=== PATIENT | female | born 1940 | race Caucasian/White ===

== ENCOUNTER 2021-07-18 19:06 | Emergency (ER) | payer MEDICARE ==
[2021-07-18] MEDS ORDERED: CLONIDINE 0.1 MG TABLET PO ONE (19:45)
--- NOTE | 2021-07-18 19:48 | ERPHSYRPT ---
- History of Present Illness Source: patient, other (Daughter) Exam Limitations: no limitations Patient Subjective Stated Complaint: Pt states "My blood pressure has been high lately so Dr. Tsang increased my blood pressure medication a week ago. Today is it has been running 160/90s and I had a big headache and took tylenol so now its better." Triage Nursing Assessment: Pt alert and oriented x3, skin wnl, pt ambulatory to cot by self with no assist, pt c/o htn and R sided frontal headache that started this morning, pt also had an epiosode of L arm numbness that started at 1030 this am and resolved around 1100am, pt has no other complaints at this time other than htn and headache, bp in ED is 181/85, pt takes amlodipine Physician History: 81 yo WF w LUE paresthesia at approx 10:00AM this morning w resolution after 15- 30 minutes. Pt has no focal weakness at this time and states that she is here because her BP is elevated. Granddaughter states that pt has had a WHITAKER which pt denies along w nausea/vomiting. Timing/Duration: today (10:00AM) Severity: mild Deficits: no difficulties Baseline/Normal Cognition: alert oriented x 3 Current Cognition: alert oriented x 3 Baseline Gait: walks w/o assistance Associated Symptoms: numbness/tingling in legs/feet, paresthesia, No confusion, No fatigue, No fever, No chills, No loss of consciousness, No nausea, No vomiting, No weakness, No insomnia, No muscle spasms, No ringing in ears, No seizures, No slurred speech, No trouble walking, No vision changes, No chest pain, No headache Allergies/Adverse Reactions: No Known Drug Allergies Allergy (Verified 07/18/21 19:31) Home Medications: Amlodipine/Atorvastatin [Amlodipine-Atorvast 5-20 mg] 2.5 mg PO DAILY 07/02/11 [History] Aspirin 1 tab PO HS 07/02/11 [History] Famotidine [Pepcid] 1 tab PO DAILY 07/04/11 [History] Calcium Carb/Vitamin D3/Vit K1 [Calcium + Vit D & K Chew Tab] 1 each PO DAILY 09/25/13 [History] Atorvastatin Calcium [Lipitor 20MG Tablet] 20 mg PO DAILY 07/18/21 [History] Losartan Potassium 100 mg PO DAILY 07/18/21 [History] Hx Tetanus, Diphtheria Vaccination/Date Given: No Hx Influenza Vaccination/Date Given: Yes Hx Pneumococcal Vaccination/Date Given: Yes Immunizations Up to Date: Yes Travel Risk - International Travel Have you traveled outside of the country in past 3 weeks: No - Coronavirus Screening Are you exhibiting any of the following symptoms?: No Close contact with a COVID-19 positive Pt in past 14-21 Days: No - Vaccine Status Have you recieved a Covid-19 vaccination: Yes 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[employer] - Vaccination Dates Date of 2cond Vaccination (if applicable): Feb 2020 - Review of Systems Constitutional: No Symptoms Eyes: No Symptoms Ears, Nose, & Throat: No Symptoms Respiratory: No Symptoms Cardiac: No Symptoms Abdominal/Gastrointestinal: No Symptoms Genitourinary Symptoms: No Symptoms Musculoskeletal: No Symptoms Skin: No Symptoms Neurological: Headache (Per Granddaughter), Parasthesia (LUE resolved) Psychological: No Symptoms Endocrine: No Symptoms Hematologic/Lymphatic: No Symptoms Immunological/Allergic: No Symptoms - Past Medical History Pertinent Past Medical History: Yes Neurological History: No Pertinent History ENT History: Cataracts Cardiac History: High Cholesterol, Hypertension Respiratory History: No Pertinent History Endocrine Medical History: No Pertinent History Musculoskeletal History: Arthritis, Osteoporosis GI Medical History: GERD, Hernia History: No Pertinent History Psycho-Social History: No Pertinent History Female Reproductive Disorders: No Pertinent History - Past Surgical History Past Surgical History: Yes Neuro Surgical History: No Pertinent History Cardiac: No Pertinent History Respiratory: No Pertinent History Gastrointestinal: Appendectomy Genitourinary: No Pertinent History Musculoskeletal: Orthopedic Surgery Female Surgical History: No Pertinent History Other Surgical History: R knee arthroscopy - Social History Smoking Status: Never smoker Exposure to second hand smoke: No Drug Use: none Patient Lives Alone: No - Nursing Vital Signs Nursing Vital Signs: Initial Vital Signs Temperature 98.3 F 07/18/21 19:22 Pulse Rate 71 07/18/21 19:22 Respiratory Rate 17 07/18/21 19:22 Blood Pressure 181/85 07/18/21 19:22 O2 Sat by Pulse Oximetry 96 07/18/21 19:22 Pain Scale Pain Intensity 4 Hypertensive - Lucius Coma Scale Best Eye Response (Sparks): (4) open spontaneously Best Verbal Response (Sparks): (5) oriented Best Motor Response (Lucius): (6) obeys commands Lucius Total: 15 - Physical Exam General Appearance: no apparent distress Eye Exam: bilateral eye: normal inspection, PERRL, EOMI Ears, Nose, Throat Exam: normal ENT inspection, TMs normal, pharynx normal, moist mucous membranes Neck Exam: normal inspection, non-tender, supple, full range of motion, No meningismus, No mass, No Brudzinski, No Kernig's Respiratory: normal breath sounds, lungs clear, airway intact Cardiovascular: regular rate/rhythm, normal heart sounds, normal peripheral pulses, capillary refill <2 sec, No murmur Gastrointestinal: soft, normal bowel sounds Back Exam: normal inspection, normal range of motion Extremity Exam: normal inspection, normal range of motion, pelvis stable Peripheral Pulses: carotid (R): 2+, carotid (L): 2+ Mental Status: alert, oriented x 3, cooperative, No agitated, 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 Exam: normal hearing, normal speech, PERRL Motor/Sensory: no motor deficit, no sensory deficit, no pronator drift, negative Babinski's sign DTR: bicep (R): 2+, bicep (L): 2+ Skin Exam: normal color, warm, dry, No rash SpO2 Interpretation: normal SpO2: 96 O2 Delivery: Room Air - Course Nursing assessment & vital signs reviewed: Yes EKG Interpreted by Me: RATE (NSR/Rate64/Normal QT-QTc/LAFB/Poor Rwave progression/No acute ST segment changes) - CT Exams Head CT Interpretation: Tele-radiologist Report (CT head nothing acute) Ordered Tests: Active Orders 24 hr Category Date Time Status EKG-ER Only STAT Care 07/18/21 19:44 Completed HEAD WITHOUT CONTRAST [CT] Stat Exams 07/18/21 19:45 Taken CBC W DIFF Stat Lab 07/18/21 20:00 Completed CMP Stat Lab 07/18/21 20:00 Completed TROPONIN Q3H Lab 07/18/21 20:00 Completed Medication Summary Discontinued Medications Generic Name Dose Route Start Last Admin Trade Name Freq PRN Reason Stop Dose Admin Clonidine 0.2 mg 07/18/21 19:45 07/18/21 20:00 Clonidine Hcl 0.1 Mg Tablet PO 07/18/21 19:46 0.2 mg STAT ONE Administration Clonidine Confirm 07/18/21 19:58 Clonidine Hcl 0.1 Mg Tablet Administered 07/18/21 19:59 Dose 0.2 mg .ROUTE .STK-MED ONE Lab/Rad Data: Laboratory Result Diagrams 07/18/21 20:00 07/18/21 20:00 Laboratory Results 07/18/21 07/18/21 07/18/21 Range/Units 20:00 20:00 20:00 WBC 6.8 (4.0-10.5) x10^3/uL RBC 4.08 L (4.1-5.4) x10^6/uL Hgb 11.5 L (12.0-16.0) g/dL Hct 36.2 (35-47) % MCV 88.7 (78-100) fL MCH 28.2 (26-32) pg MCHC 31.8 L (32-36) g/dL RDW 14.6 H (11.5-14.0) % Plt Count 263 (150-450) x10^3/uL MPV 9.6 (7.5-11.0) fL Gran % 85.2 H (36.0-66.0) % Immature Gran % (Auto) 0.1 (0.00-0.4) % Nucleat RBC Rel Count 0.0 (0.00-0.1) % Eos # (Auto) 0.01 (0-0.5) x10^3/uL Immature Gran # (Auto) 0.01 (0.00-0.03) x10^3u/L Absolute Lymphs (auto) 0.63 L (1.0-4.6) x10^3/uL Absolute Monos (auto) 0.33 (0.0-1.3) x10^3/uL Absolute Nucleated RBC 0.00 (0.00-0.01) x10^3u/L Lymphocytes % 9.3 L (24.0-44.0) % Monocytes % 4.9 (0.0-12.0) % Eosinophils % 0.1 (0.00-5.0) % Basophils % 0.4 (0.0-0.4) % Absolute Granulocytes 5.78 (1.4-6.9) x10^3/uL Basophils # 0.03 (0-0.4) x10^3/uL Sodium 137 (137-145) mmol/L Potassium 3.9 (3.5-5.1) mmol/L Chloride 104 (98-107) mmol/L Carbon Dioxide 23 (22-30) mmol/L Anion Gap 13.4 (5-15) MEQ/L BUN 19 H (7-17) mg/dL Creatinine 1.12 H (0.52-1.04) mg/dL Estimated GFR 49.5 ML/MIN Glucose 123 H (74-106) mg/dL Calcium 9.0 (8.4-10.2) mg/dL Total Bilirubin 0.50 (0.2-1.3) mg/dL AST 22 (14-36) U/L ALT 13 (0-35) U/L Alkaline Phosphatase 59 (38-126) U/L Troponin I < 0.012 (0.000-0.034) ng/mL Serum Total Protein 7.1 (6.3-8.2) g/dL Albumin 3.8 (3.5-5.0) g/dL - Progress Progress: improved Progress Note: 07/18/21 21:19 BP decreased w 0.2 po Clonidine Counseled pt/family regarding: lab results, diagnosis, need for follow-up, rad results - Departure Departure Disposition: Home Clinical Impression: Hypertension, Paresthesia and pain of left extremity Condition: Stable Critical Care Time: No Referrals: MADALYN GEE [Primary Care Provider] - Follow up/PCP as directed Instructions: High Blood Pressure (DC), Paresthesias (DC) Additional Instructions: Continue current medications Follow up with your family MD in AM Return to ER for focal weakness, worsening headache, or temperature greater than 100.5
[2021-07-18] MEDS ORDERED: CLONIDINE 0.1 MG TABLET ONE (19:58)
[2021-07-18 20:03] LABS: Absolute Neutrophil Ct (ANC) 5.78 x10^3/uL (1.4-6.9); Basophil (Absolute #) 0.03 x10^3/uL (0-0.4); Eosinophil % 0.1 % (0.00-5.0); Eosinophil (Absolute #) 0.01 x10^3/uL (0-0.5); Hematocrit 36.2 % (35-47); Hemoglobin 11.5 g/dL (12.0-16.0); Lymphocyte (Absolute #) 0.63 x10^3/uL (1.0-4.6); Lymphocytes % 9.3 % (24.0-44.0); Mean Cell Volume 88.7 fL (78-100); Mean Corpuscular Hemoglobin 28.2 pg (26-32); Mean Corpuscular Hgb Concent. 31.8 g/dL (32-36); Mean Platelet Volume 9.6 fL (7.5-11.0); Monocyte (Absolute #) 0.33 x10^3/uL (0.0-1.3); Monocytes % 4.9 % (0.0-12.0); Neutrophil % 85.2 % (36.0-66.0); Platelet Count 263 x10^3/uL (150-450); Red Blood Count 4.08 x10^6/uL (4.1-5.4); Red Cell Distribution Width 14.6 % (11.5-14.0); White Blood Count 6.8 x10^3/uL (4.0-10.5)
[2021-07-18 20:18] LABS: ALBUMIN 3.8 g/dL (3.5-5.0); ANION GAP 13.4 MEQ/L (5-15); BILIRUBIN,TOTAL 0.5 mg/dL (0.2-1.3); Creatinine 1 1.12 mg/dL (0.52-1.04); EST GLOMERULAR FILTRATION RATE 49.5 ML/MIN; Potassium 3.9 mmol/L (3.5-5.1); Total Protein 7.1 g/dL (6.3-8.2)
[2021-07-18 21:05] VITALS: BP 147/72; PULSE 61; O2SAT 96
--- NOTE | 2021-07-19 08:53 | XRAY ---
Indication: Headache. Left upper extremity paresthesia. Multiple contiguous axial images obtained through the head without contrast. Comparison: None Age-appropriate global atrophy and moderate periventricular degenerative micro-ischemia bilaterally. 8 mm remote infarct left basal ganglia. No acute intracranial hemorrhage, abnormal extra-axial fluid collection, or mass effect. Fourth ventricle is midline without hydrocephalus. Bony calvarium intact. Paranasal sinuses and mastoid air cells are clear. Impression: Nonacute senile brain. Small remote infarct left basal ganglia. Comment: Preliminary interpretation made by [facility]. No critical discrepancy.
== END 2021-07-18 21:37 | disposition home or self-care (01) ==
LOC: ED 19:06
DX: I10 Essential (primary) hypertension (principal); R20.2 Paresthesia of skin; M79.602 Pain in left arm; E78.5 Hyperlipidemia, unspecified; Z79.899 Other long term (current) drug therapy
CPT/HCPCS: 36415; 70450; 80053; 84484; 85025; 93005; 99284; A9270-GY

== ENCOUNTER 2021-09-11 23:16 | Emergency (ER) | payer MEDICARE ==
[2021-09-11] MEDS ORDERED: TRANDATE 20 MG/4 ML SYRINGE IV ONE (23:45)
--- NOTE | 2021-09-11 23:48 | ERPHSYRPT ---
- History of Present Illness Time Seen by Provider: 09/11/21 23:46 Source: patient, family Exam Limitations: no limitations Patient Subjective Stated Complaint: High blood pressure 200's/100's all day today. Not improved after taking losartan. C/o WHITAKER and dizziness intermittently today. Triage Nursing Assessment: Patient alert and oriented x 4. Skin color WNL for race. Denies chest pain, dyspnea, N/V. Does c/o intermittent dizziness and headache. Denies pain at this time. Heart sounds regular, S1,S2 present. No murmur heard. Lung sounds clear throughout. Physician History: High blood pressure 200's/100's all day today. Not improved after taking losartan. C/o WHITAKER and dizziness intermittently today. Patient has long history of hypertension and recently in 1 month ago patient has a transient ischemic attack which was treated in ER. Patient blood pressure has been running high off and on for last 2 to 3 weeks. Patient denies any chest pain nausea vomiting shortness of breath. Timing/Duration: today Severity: moderate Associated Symptoms: headaches, No shortness of breath Allergies/Adverse Reactions: No Known Drug Allergies Allergy (Verified 09/11/21 23:30) Home Medications: Famotidine [Pepcid] 1 tab PO DAILY 07/04/11 [History] Calcium Carb/Vitamin D3/Vit K1 [Calcium + Vit D & K Chew Tab] 1 each PO UD 09/25/13 [History] Atorvastatin Calcium [Lipitor 20MG Tablet] 20 mg PO QHS 07/18/21 [History] Losartan Potassium 100 mg PO QHS 07/18/21 [History] Clopidogrel Bisulfate [Clopidogrel] 75 mg PO DAILY 09/11/21 [History] Hx Tetanus, Diphtheria Vaccination/Date Given: No Hx Influenza Vaccination/Date Given: Yes Hx Pneumococcal Vaccination/Date Given: Yes Travel Risk - International Travel Have you traveled outside of the country in past 3 weeks: No - Coronavirus Screening Are you exhibiting any of the following symptoms?: No Close contact with a COVID-19 positive Pt in past 14-21 Days: No - Vaccine Status Have you recieved a Covid-19 vaccination: Yes 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[employer] - Vaccination Dates Date of 2cond Vaccination (if applicable): Feb 2020 - Review of Systems Constitutional: No Fever, No Chills Eyes: No Symptoms Ears, Nose, & Throat: No Symptoms Respiratory: No Cough, No Dyspnea Cardiac: No Chest Pain, No Edema, No Syncope Abdominal/Gastrointestinal: No Abdominal Pain, No Nausea, No Vomiting, No Diarrhea Genitourinary Symptoms: No Dysuria Musculoskeletal: No Back Pain, No Neck Pain Skin: No Rash Neurological: Dizziness, Headache, No Focal Weakness, No Sensory Changes Psychological: No Symptoms Endocrine: No Symptoms All Other Systems: Reviewed and Negative - Past Medical History Pertinent Past Medical History: Yes Neurological History: Stroke ENT History: Cataracts Cardiac History: High Cholesterol, Hypertension Respiratory History: No Pertinent History Endocrine Medical History: No Pertinent History Musculoskeletal History: Arthritis, Osteoporosis GI Medical History: GERD, Hernia History: No Pertinent History Psycho-Social History: No Pertinent History Female Reproductive Disorders: No Pertinent History - Past Surgical History Past Surgical History: Yes Neuro Surgical History: No Pertinent History Cardiac: No Pertinent History Respiratory: No Pertinent History Gastrointestinal: Appendectomy Genitourinary: No Pertinent History Musculoskeletal: Orthopedic Surgery Female Surgical History: No Pertinent History Other Surgical History: R knee arthroscopy - Social History Smoking Status: Never smoker Exposure to second hand smoke: Yes Drug Use: none Patient Lives Alone: Yes - Nursing Vital Signs Nursing Vital Signs: Initial Vital Signs Temperature 97.8 F 09/11/21 23:33 Pulse Rate 64 09/11/21 23:33 Respiratory Rate 17 09/11/21 23:33 Blood Pressure 198/85 09/11/21 23:33 O2 Sat by Pulse Oximetry 96 09/11/21 23:33 Pain Scale Pain Intensity 0 - Physical Exam General Appearance: no apparent distress, alert Eye Exam: PERRL/EOMI, eyes nml inspection Ears, Nose, Throat Exam: normal ENT inspection, TMs normal, pharynx normal, moist mucous membranes Neck Exam: normal inspection, non-tender, supple, full range of motion Respiratory Exam: normal breath sounds, lungs clear, No respiratory distress Cardiovascular Exam: regular rate/rhythm, normal heart sounds, normal peripheral pulses Gastrointestinal/Abdomen Exam: soft, normal bowel sounds, No tenderness, No mass Back Exam: normal inspection, normal range of motion, No CVA tenderness, No vertebral tenderness Extremity Exam: normal inspection, normal range of motion, pelvis stable Neurologic Exam: alert, oriented x 3, cooperative, normal mood/affect, nml cerebellar function, nml station & gait, sensation nml, No motor deficits Skin Exam: normal color, warm, dry, No rash Lymphatic Exam: No adenopathy SpO2: 96 - Course Nursing assessment & vital signs reviewed: Yes Ordered Tests: Active Orders 24 hr Category Date Time Status CBC W DIFF Stat Lab 09/11/21 00:27 Completed CMP Stat Lab 09/11/21 00:27 Completed NT PRO BNP Stat Lab 09/11/21 00:27 Completed TROPONIN Stat Lab 09/11/21 00:27 Completed Medication Summary Discontinued Medications Generic Name Dose Route Start Last Admin Trade Name Ga PRN Reason Stop Dose Admin Labetalol HCl 10 mg 09/11/21 23:45 09/12/21 00:19 Labetalol Hcl 20 Mg/4 Ml Disp.Syringe IV 09/11/21 23:46 10 mg STAT ONE Administration Labetalol HCl Confirm 09/12/21 00:19 Labetalol Hcl 20 Mg/4 Ml Disp.Syringe Administered 09/12/21 00:20 Dose 20 mg IV .[employer] ONE Lab/Rad Data: Laboratory Result Diagrams 09/11/21 00:27 09/11/21 00:27 Laboratory Results 09/11/21 09/11/21 Range/Units 00:27 00:27 WBC 4.9 (4.0-10.5) x10^3/uL RBC 3.81 L (4.1-5.4) x10^6/uL Hgb 10.8 L (12.0-16.0) g/dL Hct 34.3 L (35-47) % MCV 90.0 (78-100) fL MCH 28.3 (26-32) pg MCHC 31.5 L (32-36) g/dL RDW 15.2 H (11.5-14.0) % Plt Count 272 (150-450) x10^3/uL MPV 9.7 (7.5-11.0) fL Gran % 65.6 (36.0-66.0) % Immature Gran % (Auto) 0.2 (0.00-0.4) % Nucleat RBC Rel Count 0.0 (0.00-0.1) % Eos # (Auto) 0.11 (0-0.5) x10^3/uL Immature Gran # (Auto) 0.01 (0.00-0.03) x10^3u/L Absolute Lymphs (auto) 0.90 L (1.0-4.6) x10^3/uL Absolute Monos (auto) 0.62 (0.0-1.3) x10^3/uL Absolute Nucleated RBC 0.00 (0.00-0.01) x10^3u/L Lymphocytes % 18.4 L (24.0-44.0) % Monocytes % 12.7 H (0.0-12.0) % Eosinophils % 2.3 (0.00-5.0) % Basophils % 0.8 (0.0-0.4) % Absolute Granulocytes 3.20 (1.4-6.9) x10^3/uL Basophils # 0.04 (0-0.4) x10^3/uL Sodium 138 (137-145) mmol/L Potassium 4.1 (3.5-5.1) mmol/L Chloride 107 (98-107) mmol/L Carbon Dioxide 23 (22-30) mmol/L Anion Gap 11.6 (5-15) MEQ/L BUN 15 (7-17) mg/dL Creatinine 0.95 (0.52-1.04) mg/dL Estimated GFR 59.9 ML/MIN Glucose 103 (74-106) mg/dL Calcium 9.2 (8.4-10.2) mg/dL Total Bilirubin 0.50 (0.2-1.3) mg/dL AST 21 (14-36) U/L ALT 14 (0-35) U/L Alkaline Phosphatase 61 (38-126) U/L Troponin I < 0.012 (0.000-0.034) ng/mL NT-Pro-B Natriuret Pep 461 (0-1800) pg/mL Serum Total Protein 6.9 (6.3-8.2) g/dL Albumin 3.7 (3.5-5.0) g/dL - Progress Progress: improved Counseled pt/family regarding: lab results, diagnosis, need for follow-up - Departure Departure Disposition: Home Clinical Impression: Hypertension Qualifiers: Hypertension type: primary hypertension Qualified Code(s): I10 - Essential (primary) hypertension Condition: Stable Critical Care Time: No Referrals: MADALYN GEE [Primary Care Provider] - Follow up/PCP as directed Instructions: Malignant Hypertension (DC) Additional Instructions: Discharge/Care Plan JOSUE NAVARRO was seen on 09/12/21 in the Emergency Room. The patient was counseled regarding Diagnosis,Lab results, Imaging studies, need for follow up and when to return to the Emergency Room. Prescriptions given: Discharge Note I have spoken with the patient and/or caregivers. I have explained the patient's condition, diagnosis and treatment plan based on the information available to me at this time. I have answered the patient's and/or caregiver's questions and addressed any concerns. The patient and/or caregivers have as good understanding of the patient's diagnosis, condition and treatment plan as can be expected at this point. The vital signs have been stable. The patient's condition is stable and appropriate for discharge from the emergency department. The patient will pursue further outpatient evaluation with the primary care physician or other designated or consulting physician as outlined in the discharge instructions. The patient and/or caregivers are agreeable to this plan of care and follow-up instructions have been explained in detail. The patient and/or caregivers have received these instruction. The patient/and or caregivers are aware that any significant change in condition or worsening of symptoms should prompt an immediate return to this or the closest emergency department or call 911. JOSUE NAVARRO was seen on 09/12/21 n the Emergency Room. At that time you were treated for an emergent condition, during your visit Laboratory, Radiology and/or other procedures may have been ordered. It is very important that you follow-up with your Primary Care Physician MADALYN GEE within the next 24-48 hours to review your Emergency Room visit and the final results of testing that was ordered. Some test results such as Urine Cultures, Blood Cultures, and other cultures if ordered will not be finalized for 24-48 hours. If you do not have a Primary Care Provider please call the medical records department at [phone] ext [phone] to obtain a copy of your results or you may sign into our patient portal to obtain these results by visiting us @ [email or web address] and completing the following steps: 1. Click on the Patient Portal link 2. Click the Patient Self Enrollment Link to complete the enrollment form and entering your 3. Once the enrollment form is completed you will receive an email with a temporary ID and password at the email address you provided. 4. Next choose a user name and password. Your user name must be at least 4 characters long and your password must be at least 4 characters long. 5. Choose a security question from the list and provide your answer to the question. If you already have signed into the Health Portal you may access your Health Care Information 05/09 by the following steps: 1. Login to our website @ [email or web address] 2. Enter your original user name and password. FAQS The [facility] Health Portal is an online tool that contains your Lab Results, Radiology Reports, Visit History, Discharge Instructions and Health Summary Lab and Radiology Results will not be available for 72 hours on the portal. The Portal is a secure site, passwords are encryted and URLs are re-written so they cannot be copied and pasted. You and authorized family members are the only ones who can access your Portal. Also there is a timeout feature that protects your information if you leave the Portal page open. If you have technical difficulty please use the Contact Us link on the page this will allow you to submit any questions you have regarding the Portal or you may contact the Medical Record Department at [phone] ext [phone]. Prescriptions: Labetalol HCl 100 mg [Trandate 100 MG] 100 mg PO BID #60 tablet
[2021-09-12] MEDS ORDERED: TRANDATE 20 MG/4 ML SYRINGE IV ONE (00:19)
[2021-09-12 00:29] LABS: Basophil (Absolute #) 0.04 x10^3/uL (0-0.4); Eosinophil % 2.3 % (0.00-5.0); Eosinophil (Absolute #) 0.11 x10^3/uL (0-0.5); Hematocrit 34.3 % (35-47); Hemoglobin 10.8 g/dL (12.0-16.0); Lymphocytes % 18.4 % (24.0-44.0); Mean Corpuscular Hemoglobin 28.3 pg (26-32); Mean Corpuscular Hgb Concent. 31.5 g/dL (32-36); Mean Platelet Volume 9.7 fL (7.5-11.0); Monocyte (Absolute #) 0.62 x10^3/uL (0.0-1.3); Monocytes % 12.7 % (0.0-12.0); Neutrophil % 65.6 % (36.0-66.0); Platelet Count 272 x10^3/uL (150-450); Red Blood Count 3.81 x10^6/uL (4.1-5.4); Red Cell Distribution Width 15.2 % (11.5-14.0); White Blood Count 4.9 x10^3/uL (4.0-10.5)
[2021-09-12 00:58] VITALS: BP 181/80; PULSE 65
[2021-09-12 01:05] LABS: ALBUMIN 3.7 g/dL (3.5-5.0); ALKALINE PHOSPHATASE 61 U/L (38-126); ANION GAP 11.6 MEQ/L (5-15); BLOOD UREA NITROGEN 15 mg/dL (7-17); CHLORIDE 107 mmol/L (98-107); Calcium 9.2 mg/dL (8.4-10.2); Carbon Dioxide 23 mmol/L (22-30); Creatinine 1 0.95 mg/dL (0.52-1.04); EST GLOMERULAR FILTRATION RATE 59.9 ML/MIN; Glucose 103 mg/dL (74-106); NT PRO BNP 461 pg/mL (0-1800); Potassium 4.1 mmol/L (3.5-5.1); SGOT/AST 21 U/L (14-36); SGPT/ALT 14 U/L (0-35); SODIUM 138 mmol/L (137-145); TROPONIN < 0.012 ng/mL (0.000-0.034); Total Protein 6.9 g/dL (6.3-8.2)
[2021-09-12] MEDS ORDERED: Trandate 100 MG ONE (01:24)
[2021-09-12 01:25] VITALS: O2SAT 96
[2021-09-12] MEDS: Trandate 100 MG PO SCH ×2 (01:31→01:32)
== END 2021-09-12 01:44 | disposition home or self-care (01) ==
LOC: ED 23:16
DX: I10 Essential (primary) hypertension (principal); R51.9 Headache, unspecified; R42 Dizziness and giddiness; E78.5 Hyperlipidemia, unspecified; Z79.02 Long term (current) use of antithrombotics/antiplatelets; Z79.899 Other long term (current) drug therapy
CPT/HCPCS: 36000; 36415; 80053; 83880; 84484; 85025; 96374; 99283; A9270-GY